=== PATIENT | male | born 1970 | race Caucasian/White ===

== ENCOUNTER 2016-06-06 12:22 | Emergency (ER) | payer BC ==
[~2016-06-06] VITALS: Ht 182.9 cm; Wt 123.0 kg
[~2016-06-06 12:22] MED LIST: ALKA SELTZER P PO; CIPRO500 MG PO; DILAUDID4 MG PO; ENDOCET 5-3251 EACH PO; FLAGYL500 MG PO; IBUPROFEN400 MG PO; INVANZ1 GM IM; MEN'S ONE DAIL1 EACH PO; NAPROSYN500 MG PO; ONDANSETRON4 MG/2 ML IV; PERCOCET 5/31 TABLET PO; ZOFRAN ODT4 MG PO
[2016-06-06 12:54] LABS: ADD MIUA? NO; BILIRUBIN NEGATIVE; BLOOD NEGATIVE; COLOR YELLOW ((YELLOW)); GLUCOSE (STRIP) NEGATIVE; KETONES NEGATIVE; LEUKOCYTES NEGATIVE; NITRITE NEGATIVE; PROTEIN (STRIP) NEGATIVE; SPECIFIC GRAVITY 1.009 (1.000-1.030); UCUL ADDED? NO; UROBILINOGEN 0.2 MG/DL (0.2-1.0)
[2016-06-06 13:00] LABS: HEMATOCRIT 48.7 % (38.0-50.0); MCH 29.2 PG (29.0-34.0); MCHC 34.1 G/DL (30.0-36.0); MCV 85.6 FL (86-99); MEAN PLAT.VOLUME 9.6 uM^3 (9.0-12.4); PLATELET COUNT 268 K/uL (156-360); RBC DIS.WIDTH-CV 12.4 % (11.8-14.6); RBC DIS.WIDTH-SD 38.5 % (39-53); RED BLOOD COUNT 5.69 M/uL (4.00-5.50); WHITE BLOOD COUNT 8.8 K/uL (4.1-10.2)
[2016-06-06 13:17] LABS: CHLORIDE 107 mEq/L (99-109); POTASSIUM 4.1 mEq/L (3.7-5.4); SODIUM 139 mEq/L (136-147)
[2016-06-06 13:19] LABS: GLUCOSE 90 mg/dL (70-99)
[2016-06-06 13:20] LABS: ANION GAP 10 MEQ/L (2-14)
[2016-06-06 13:21] LABS: TOTAL BILIRUBIN 0.9 mg/dL (0.0-1.0)
[2016-06-06 13:23] LABS: ALKALINE PHOSPHATASE 73 IU/L (3-129); GFR ESTIMATE (CALCULATED) > 59 mL/min/
[2016-06-06 13:24] LABS: UREA NITROGEN (BUN) 11 mg/dL (9-23)
[2016-06-06] MEDS ORDERED: BENTYL20 MG PO (14:26)
[2016-06-06 14:51] VITALS: BP 132/87
== END 2016-06-06 14:54 | disposition home or self-care (01) ==
LOC: EME 12:22
DX: R10.9 Unspecified abdominal pain (principal); K21.9 Gastro-esophageal reflux disease without esophagitis
CPT/HCPCS: 74176; 80053; 81003; 85027; 99281; 99285; J7030